=== PATIENT | male | born 1970 | race Two or more races ===

== ENCOUNTER → 2024-02-29 | Emergency (ER) | payer BC ==
[~2024-02-29] VITALS: Ht 170.2 cm; Wt 68.0 kg
[~2024-02-29] MED LIST: ATOMOXETINE HCL60 MG PO; TRUVADA 200 MG1 EACH
== END | disposition left against medical advice (07) ==
LOC: ER 10:48
DX: Z53.21 Procedure and treatment not carried out due to patient leaving prior to being seen by health care provider (principal)